=== PATIENT | male | born 1985 | race Caucasian/White ===

== ENCOUNTER 2022-05-23 04:09 | Inpatient (IN) | payer SELFPAY ==
--- NOTE | 2022-05-23 04:20 | ED.C_ITS ---
HPI - Psych General: Chief Complaint: Psychiatric Symptoms Stated Complaint: si/hi Time Seen by Provider: 05/23/22 04:11 Source: patient and police Mode of arrival: other (police) Limitations: no limitations History of Present Illness: 36-year-old male who has a history of drug abuse he does admit to drug use tonight. Please states that on and found him he was hallucinating. He does tell me that he states that multiple he foreshortening tonight he saw bolts going through his head he states that he was also been wearing a bulletproof vest and per police none of this was true. Patient here is under the influence of drugs. He denies suicidal or homicidal ideations but he is acutely psychotic here likely drug-induced. Associated symptoms: Reports visual hallucinations; Deny depression Review of Systems Const: Denies: fever(s), chills, body aches or change in appetite Eyes: Denies: blurry vision or eye discomfort ENMT: Denies: throat pain or dental pain Card: Denies: chest pain Resp: Denies: dyspnea GI: Denies: abdominal pain, nausea, vomiting or diarrhea : Denies: dysuria Musc: Denies: neck pain or back pain Skin/Breast: Denies: rash Neuro: Denies: headache(s) Psych: Reports: mood swings, paranoia and visual hallucinations; Denies: depression Juwan/Lymph: Denies: easy bruising All/Imm: Denies: urticaria [facility] ED PFSH: Medical History (Updated 05/23/22 @ 05:25 by Giancarlo Ibrahim MD) No pertinent past medical history Social History (Updated 05/23/22 @ 04:21 by Giancarlo Ibrahim MD) Substance/Drug Use: current Physical Exam Const: COMMON NORMALS: patient oriented x3 GENERAL APPEARANCE: anxious, disheveled and diaphoretic HENMT: COMMON NORMALS: normocephalic and atraumatic HEAD & SCALP: normocephalic and atraumatic Eye: COMMON NORMALS: Equal, round and reactive pupils present and EOMs intact bilaterally PUPIL: Yes Equal, round and reactive pupils present Neck/C-Spine: COMMON NORMALS: full ROM and supple Chest: COMMONS NORMALS: normal inspection of the chest and normal palpation of entire chest wall Resp: COMMON NORMALS: normal respiratory effort, No retractions, No use of accessory muscles and clear to auscultation bilaterally AUSCULTATION: clear to auscultation bilaterally Cardio: COMMON NORMALS: regular rate, regular rhythm and No murmurs present (Cardio) RATE: regular rate RHYTHM: regular rhythm GI: COMMON NORMALS: Normal to inspection, nondistended, normoactive bowel dorcas nds present, Soft to palpation, non-tender and no masses PALPATION: Yes Soft to palpation Extremity: COMMON NORMALS: normal to inspection and full ROM Neuro: COMMON NORMALS: patient oriented x3, moves all extremities and no focal motor deficits Psych: COMMON NORMALS: mental status grossly normal ATTITUDE: Yes bizarre and Yes aggressive ACTIVITY/MOTOR BEHAVIOR: Yes psychomotor agitation SPEECH: Yes rapid THOUGHT CONTENT: Yes Hallucination(s) present Skin: COMMON NORMALS: no rashes or lesions noted and no wounds GENERAL SKIN EXAM: no rashes or lesions noted Course Vital Signs: Vital signs: Vital Signs Temperature 98.2 F 05/23/22 04:34 Pulse Rate 101 H 05/23/22 05:04 Respiratory Rate 18 05/23/22 05:04 Blood Pressure 113/70 05/23/22 05:04 Pulse Oximetry 97 05/23/22 05:04 Oxygen Delivery Me thod 05/23/22 05:04 MDM - Psych Medical Decision Making Patient presents here with acute psychosis likely drug-induced patient is hallucinating here he is placed on a 96-hour hold he does have a leukocytosis likely due to the methamphetamine he has no signs of infection I talked to psychiatrist will admit the psychiatric unit. Lab Data : 05/23/22 04:35 05/23/22 04:35 Laboratory Results WBC 20.4 10^3/uL (4.0-10.0) H 05/23/22 04:35 RBC 5.11 10^6/uL (4.1-5.3) 05/23/22 04:35 Hgb 16.0 g/dL (11.7-16.6) 05/23/22 04:35 Hct 46.0 % (42.0-52.0) 05/23/22 04:35 MCV 90.0 fl (80-94) 05/23/22 04:35 MCH 31.3 pg (28.0-34.0) 05/23/22 04:35 MCHC 34.8 g/dL (30.0-36.0) 05/23/22 04:35 RDW 11.9 % (12.1-15.1) L 05/23/22 04:35 Plt Count 349 10^3/cmm (130-400) 05/23/22 04:35 MPV 9.8 fL (7.4-10.4) 05/23/22 04:35 Neut % (Auto) 83.6 % 05/23/22 04:35 Lymph % (Auto) 6.4 % 05/23/22 04:35 [place] % (Auto) 9.4 % 05/23/22 04:35 Eos % (Auto) 0.0 % 05/23/22 04:35 Baso % (Auto) 0.2 % 05/23/22 04:35 Neut # (Auto) 17.05 10^3/uL (1.8-7.7) H 05/23/22 04:35 Lymph # (Auto) 1.3 10^3/uL (0.8-4.8) 05/23/22 04:35 [place] # (Auto) 1.9 10^3/uL (0.2-0.9) H 05/23/22 04:35 Eos # (Auto) 0.0 10^3/uL (0.0-0.8) 05/23/22 04:35 Baso # (Auto) 0.0 10^3/uL (0.0-0.1) 05/23/22 04:35 Nucleated RBC % (auto) 0 % 05/23/22 04:35 Nucleated RBCs # 0.0 /100WBC 05/23/22 04:35 Sodium 142 mmol/L (136-145) 05/23/22 04:35 Potassium 4.1 mmol/L (3.5-5.1) 05/23/22 04:35 Chloride 102 mmol/L (98-107) 05/23/22 04:35 Carbon Dioxide 25 mmol/L (22-29) 05/23/22 04:35 Anion Gap 19.1 (5-19) H 05/23/22 04:35 BUN 25 mg/dL (6-20) H 05/23/22 04:35 Creatinine 1.2 mg/dL (0.7-1.2) 05/23/22 04:35 GFR Calculation 68.5 mL/min (90-130) L 05/23/22 04:35 Glucose 107 mg/dL (65-115) 05/23/22 04:35 Calculated Osmolality 299 mOsm/kg (285-295) H 05/23/22 04:35 Calcium 9.4 mg/dL (8.5-10.5) 05/23/22 04:35 Total Bilirubin 0.9 mg/dL (0.15-1.2) 05/23/22 04:35 AST 63 U/L (0-40) H 05/23/22 04:35 ALT 35 U/L (0-41) 05/23/22 04:35 Alkaline Phosphatase 82 IU/L (40-130) 05/23/22 04:35 Total Protein 7.9 g/dL (6.6-8.7) 05/23/22 04:35 Albumin 5.1 g/dL (3.5-5.2) 05/23/22 04:35 Globulin 2.8 g/dL (1.3-4.6) 05/23/22 04:35 Salicylates < 0.3 mg/dL (3-10) L 05/23/22 04:35 Acetaminophen < 5.0 ug/mL (10-30) L 05/23/22 04:35 Ethyl Alcohol < 10 mg/dL (0-10) 05/23/22 04:35 Discharge Plan Discharge Patient Disposition: Admitted As Inpatient Clinical Impression: Acute psychosis, Drug abuse Coding Level of Care Code 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
[2022-05-23] MEDS: midazolam 1 mg/mL INJ 2 mL 4 MG IM (04:22)
[2022-05-23] MEDS: ziprasidone 20 mg/mL SDV IM ×2 (04:22→21:42)
[2022-05-23] MEDS: diphenhydrAMINE 50 mg/mL SDV 1mL IM (04:23)
[2022-05-23 04:34] VITALS: BP 135/109; PULSE 140; RESP 20; TEMP 36.8; O2SAT 100; BMI 22.3
[2022-05-23 04:40] LABS: Basophils % 0.2 %; Lymphocytes # 1.3 10^3/uL (0.8-4.8); Lymphocytes % 6.4 %; Mean Corpuscular HGB Conc 34.8 g/dL (30.0-36.0); Mean Corpuscular Hemoglobin 31.3 pg (28.0-34.0); Mean Platelet Volume 9.8 fL (7.4-10.4); Monocytes # 1.9 10^3/uL (0.2-0.9); Monocytes % 9.4 %; Neutrophils # 17.05 10^3/uL (1.8-7.7); Neutrophils % 83.6 %; Nucleated Red Blood Cells % 0 %; Platelet Count 349 10^3/cmm (130-400); Red Blood Count 5.11 10^6/uL (4.1-5.3); Red Cell Distribution Width 11.9 % (12.1-15.1); White Blood Count 20.4 10^3/uL (4.0-10.0)
--- NOTE | 2022-05-23 04:42 | PC.NURSE ---
Jackson VALERA, was able to talk to patient and deescalate the situation . Pt. has allowed Jackson to give medications and draw blood. Police state that they have went through the patients pockets and made sure that he has nothing on him that will hurt anyone. Pt. is laying in bed after medications have started to work to calm patient.
--- NOTE | 2022-05-23 04:49 | XRR_ITS ---
PROCEDURE INFORMATION: Exam: XR Chest Exam date and time: 05/23/2022 4:53 AM Age: 36 years old Clinical indication: Chest pressure; Patient HX: Chest pain; Additional info: Cp TECHNIQUE: Imaging protocol: Radiologic exam of the chest. Views: 1 view. COMPARISON: No relevant prior studies available. FINDINGS: Lungs: Unremarkable. No consolidation. Pleural spaces: Unremarkable. No pleural effusion. No pneumothorax. Heart/Mediastinum: Unremarkable. No cardiomegaly. Bones/joints: Unremarkable. XR/XR chest 1V portable [id number] IMPRESSION: No acute findings.
[2022-05-23 05:04] VITALS: BP 113/70; PULSE 101; RESP 18; O2SAT 97
[2022-05-23 05:05] LABS: Alanine Aminotransferase 35 U/L (0-41); Albumin Level 5.1 g/dL (3.5-5.2); Alkaline Phosphatase 82 IU/L (40-130); Anion Gap 19.1 (5-19); Aspartate Amino Transferase 63 U/L (0-40); Blood Urea Nitrogen 25 mg/dL (6-20); Calcium 9.4 mg/dL (8.5-10.5); Carbon Dioxide 25 mmol/L (22-29); Chloride 102 mmol/L (98-107); Globulin 2.8 g/dL (1.3-4.6); Glomerular Filtration Rate 68.5 mL/min (90-130); Glucose 107 mg/dL (65-115); Osmolality Calculated 299 mOsm/kg (285-295); Potassium 4.1 mmol/L (3.5-5.1); Sodium 142 mmol/L (136-145); Total Bilirubin 0.9 mg/dL (0.15-1.2); Total Protein 7.9 g/dL (6.6-8.7)
[2022-05-23 05:10] LABS: Acetaminophen < 5.0 ug/mL (10-30); Alcohol Level < 10 mg/dL (0-10); Salicylate < 0.3 mg/dL (3-10)
--- NOTE | 2022-05-23 07:19 | PC.NURSE ---
WHILE AT DOORWAY PT IS RESTLESS MOVING IN BED WITH EYES CLOSED. PT IS IN NAD. PT HAS SITTER AT BEDSIDE. PT IS IN PAPER SCRUBS.
[2022-05-23 08:59] VITALS: BP 94/71; PULSE 97; RESP 20; O2SAT 98
[2022-05-23] MEDS: OLANZapine 5 mg ODT PO (09:11)
--- NOTE | 2022-05-23 09:12 | PC.NURSE ---
Patient reports increased anxiety. Anxious affect and fidgeting observed. Zydis 5 mg sl given for this.
--- NOTE | 2022-05-23 10:30 | W.PM.NPUH&PS ---
Providers/Chief Complaint Admitting Physician: Meir Bolivar MD Chief Complaint: si/hi HPI NPU History of Present Illness Nilton Huerta is a 36 year old male who presented to the Emergency department with the following report: Chief Complaint: Psychiatric Symptoms Stated Complaint: si/hi Time Seen by Provider: 05/23/22 04:11 Source: patient and police Mode of arrival: other (police) Limitations: no limitations History of Present Illness: 36-year-old male who has a history of drug abuse he does admit to drug use tonight. Please states that on and found him he was hallucinating. He does tell me that he states that multiple he foreshortening tonight he saw bolts going through his head he states that he was also been wearing a bulletproof vest and per police none of this was true. Patient here is under the influence of drugs. He denies suicidal or homicidal ideations but he is acutely psychotic here likely drug-induced. Associated symptoms: Reports visual hallucinations; Deny depression He was admitted to the neuropsychiatric unit for definitive treatment of those issues. He presents today reporting he has no allergies, he is not on medications, and that essentially, he had a nervous breakdown. He denies ever having outpatient services or inpatient services but does believe that a PCP wants to try to start him on Celexa maybe for a short period of time. He reports that he smokes about 23 cigarettes a day, has alcohol, marijuana, and also uses other illicit drugs. He reports he has been to a rehab one time, and he has been to two to three rehabs through the criminal justice department jailed rehab so to speak. He never had a DUI, denied any drug related charges. He reports the reason why he is here, is that he had some bizarre experience that in his mind is true and real but that he is being told did not and he feels certain that it did. He reports he did take a cocktail of heroin, methamphetamine, and some other drugs and ended up having a strange situation where he felt people were after him and shooting him and things of that nature. He did acknowledge that there was some slight chance that maybe it was in his mind and had something to do with the drugs. We had a discussion about the impact of methamphetamines, and the chance for psychosis, and the fact that he describes just getting out of [facility] on the and that he has been essentially in the last five years. He reports that it is possible that he guesses that being so removed from using that his body had a more intense reaction with not feeling himself. He reports he did have some moment in his life where he had a little depression, but he reports he is not a depressed person and is not had any trials of medication other than Celexa. He denies ever being at a point where he would want to kill himself, but never had any suicide attempts, never had any self-injurious behavior. The patient is on a 96-hour hold. PSYCHIATRIC HISTORY: As above. SUBSTANCE ABUSE HISTORY: As above. FAMILY HISTORY: There are no mental health or addiction issue on either side of the family and no suicide attempts or completions in the family reported. DEVELOPMENTAL HISTORY: He denies being premature and having any issues at . He learned to walk and talk and met his developmental milestones on time. He reports that when he went off to school, he did not require speech therapy, but he does report that he had learning disability and struggled with math, reading, and writing and was in learning disabled classes. He reports his parents were together when he was born, and he believes they are still together. They have five children, and he was the youngest of the five children, two older brothers, two older sisters, and him. He denies his parents had any other children. He reports his childhood was good. He denied any emotional, physical, or sexual abuse. He denies any CYS involvement or having issues in school where he was truant and there were any placements for that or necessarily for any legal issues. PSYCHOSOCIAL HISTORY: He reports he has been in [facility]f/[facility] for half of his life, reporting that it has been about 18 ? years and he is going to be 37 in a couple of reports. He reports that during that time in alf he has seen a lot of stuff that was not good and sometimes you have to deal with it, sometimes you come with things that you despite, but surviving in [facility] all those years required him to sometimes become like the people that you cannot stand to be able to make it. He reports he graduated from high school and has some certificates in [employer]. He endorses being heterosexual. His longest relationship was five years. He has never been . He has a 9-year-old son and a 17-year-old daughter. He has never been in the . He endorses being Nond[employer]. He reports his longest work history is probably about two years in a [employer]. He reports he currently lives in a trailer with his mom and dad. LEGAL HISTORY: As stated above, he says he has been in [facility] for 18 ? years total of his life and he just finished approximately five-year time straight. There may have been a few days that he got out before returning in those five years, but he spent most of his life in [facility]. MEDICAL HISTORY: There is a question of possible abscess in his inner right elbow. He endorses having hypertension. Meds NPU Home Medications Medication Instructions Recorded Confirmed Last Taken Type No Known Home Medications 05/23/22 05/23/22 Unknown History Allergies Allergy/AdvReac Type Severity Reaction Status Date / Time Penicillins Allergy ALGY-Anaphy Verified 05/23/22 04:18 laxis PFS NPU PFSH: Medical History (Updated 05/25/22 @ 07:54 by Meri Bolivar MD) No pertinent past medical history Social History (Updated 05/23/22 @ 04:21 by Giancarlo Ibrahim MD) Substance/Drug Use: current Mental Status Exam MSE Comments: This is a well-nourished, well-developed, white male, in hospital scrubs, with adequate grooming but limited eye contact. No abnormal movements except for mild psychomotor retardation. Cooperative with exam mild to moderate distress at times. Speech was decreased rate and volume. Mood described as alright; affect congruent. Thought process, organized. Patient does endorse paranoia and he does endorse auditory visual hallucinations. Attention, concentration, and memory appear intact but were not formally tested. He is alert and oriented times three. Insight and judgment impaired, impulse control limited. Vitals/I&O/Wt Last Vital Signs Temp 98.2 F 05/23/22 04:34 Pulse 97 05/23/22 08:59 Resp 20 H 05/23/22 08:59 BP 94/71 05/23/22 08:59 Pulse Ox 98 05/23/22 08:59 O2 Del Method 05/23/22 08:45 Weight last 48 hrs Weight 68.492 kg Data NPU : 05/23/22 04:35 05/23/22 04:35 A&P Assessment and plan (1) Acute psychosis: Status: Acute (2) Drug abuse: Status: Acute (3) No pertinent past medical history: Status: Acute (4) Methamphetamine use disorder, severe: Status: Acute Plan This is a 36, almost 37-year-old, white male, with an extensive legal history, significant drug history, who presents with recent release from [facility] and struggles with coping with some of the challenges related to his addiction and psychosis likely secondary to methamphetamine. RECOMMENDATION AND PLAN: 1. Continue current medication except will continue to encourage him to consider antipsychotic to help with these symptoms, even if they are drug-induced. 2. Encourage individual, group, and milieu therapy. 3. Continue q-15 minute checks for safety. 4. Encourage sober living treatment, after discharge, at the highest level of care to which he is willing to commit. Involuntary Hold Information 96 Hour Hold: 96 Hour Involuntary Admission: Yes 96 Hour Hold Ending Date: 05/29/22 96 Hour Hold Ending Time: 00:01 Attestations NPU Medical Necessity Statement*: Inpatient hospitalization is medically necessary and the clinically appropriate intervention, at this time. We will monitor medications and make changes as indicated. Patient will be in the hospital for over two midnights. Likely length of stay is three to five days. Coding Level of Care Code Acute Warp Hand for Tucker Jiménez Diagnoses Acute psychosis F23 Drug abuse F19.10 No pertinent past medical history Z78.9 Methamphetamine use disorder, severe F15.20
[2022-05-23 13:36] LABS: Amphetamines Screen Urine Positive (Negative); Barbiturates Screen Urine Negative (Negative); Benzodiazepines Screen Urine Negative (Negative); Cocaine Screen Urine Negative (Negative); Opiate Screen Urine Negative (Negative); PCP Screen Urine Negative (Negative); THC Screen Urine Negative (Negative)
[2022-05-23 13:52] VITALS: BP 136/79; PULSE 109; RESP 19; TEMP 36.6; O2SAT 98
[2022-05-23] MEDS: nicotine 21 mg Patch 1 PATCH TRANSDERMA (16:49)
[2022-05-23] MEDS: acetaminophen 325 mg Tablet 650 MG PO (20:17)
[2022-05-23 20:18] VITALS: BP 137/86; PULSE 109; RESP 18; TEMP 37.2; O2SAT 95
[2022-05-23] MEDS: haloperidol 5 mg Tablet PO (21:08)
--- NOTE | 2022-05-23 21:08 | PC.NURSE ---
PT UP PACING THE GRIFFITH. THIS NURSE ASK HOW PT WAS DOING AND PT STATES HE IS SEEING PEOPLE. PT STATES PEOPLE ARE OUT TO GET HIM AND SOMEONE IS COMING TO SHOOT HIM. PT REASSURED HE IS SAFE HERE. PT BELIEVES HE HEARS SOMEONE COMING BUT THIS NURSE ENSURES HIM IT IS OTHER PATIENT DOWN IN THE DAY ROOM WATCHING TV AND PT FELT BETTER. PT STATES THESE PEOPLE HE SEES ARE NOT TALKING TO HIM BUT THERE ARE MORE COMING. HALDOL GIVEN.
[2022-05-23] MEDS: trazodone 50 mg Tablet PO (21:20)
--- NOTE | 2022-05-23 21:43 | PC.NURSE ---
PRN PT CONTINUES TO ESCALATE AFTER PO HALDOL. THIS NURSE WAS GIVEN A TELELPHONE ORDER FOR GEODON 20MG IM NOW BY DR. FELDMAN. PT WAS GIVEN INJECTION AND CONTINUES TO PACE THE GRIFFITH.
--- NOTE | 2022-05-23 21:48 | PC.NURSE ---
WHILE PT CONTINUES TO PACE THE GRIFFITH HE WIPES HIS HEAD OFF FREQUENTLY WITH A WASH CLOTH. PT WAS WALKING BY THE NURSES STATION WASH CLOTH HAS REDNESS TO IT. THIS NURSE WENT TO PT BY HIS ROOM AND LOOKED AT HIS HEAD. PT HAS SMALL SCRATCH ON THE TOP OF HIS HEAD AND PT BELIEVES HE SCRATCHED HIS HEAD WHILE PACING. BANDAID WAS APPLIED.
[2022-05-24 06:56] VITALS: RESP 18
--- NOTE | 2022-05-24 07:49 | P.NPUPN_ITS ---
Subjective NPU Subjective: Patient presents today with no significant changes. He continues to endorse a desire to leave but also clearly still has some psychotic symptoms. He continues to refuse medication to help alleviate the symptoms. We discussed that the new doctor will be here tomorrow for a fresh look at things and that when he was deemed to be safe we would allow him to discharge. Mental Status Exam MSE Comments: This is a well-nourished, well-developed, white male, in hospital scrubs, with adequate grooming but limited eye contact. No abnormal movements except for mild psychomotor retardation. Cooperative with exam mild to moderate distress at times. Speech was decreased rate and volume. Mood described as fine; affect congruent. Thought process, organized. Patient does endorse paranoia and he does endorse auditory visual hallucinations. Attention, concentration, and memory appear intact but were not formally tested. He is alert and oriented times three. Insight and judgment impaired, impulse control limited. Vitals/I&O/Wt Last Vital Signs Temp 99.0 F 05/23/22 20:18 Pulse 109 H 05/23/22 20:18 Resp 18 05/24/22 06:56 BP 137/86 05/23/22 20:18 Pulse Ox 95 05/23/22 20:18 O2 Del Method 05/23/22 08:45 Data NPU : 05/23/22 04:35 05/23/22 04:35 A&P Assessment and plan (1) Acute psychosis: Status: Acute (2) Drug abuse: Status: Acute (3) No pertinent past medical history: Status: Acute (4) Methamphetamine use disorder, severe: Status: Acute Plan This is a 36, almost 37-year-old, white male, with an extensive legal history, significant drug history, who presents with recent release from shelter and struggles with coping with some of the challenges related to his addiction and psychosis likely secondary to methamphetamine. RECOMMENDATION AND PLAN: 1. Continue current medication except will continue to encourage him to cons ider antipsychotic to help with these symptoms, even if they are drug-induced. 2. Encourage individual, group, and milieu therapy. 3. Continue q-15 minute checks for safety. 4. Encourage sober living treatment, after discharge, at the highest level of care to which he is willing to commit. Involuntary Hold Information 96 Hour Hold: 96 Hour Involuntary Admission: Yes 96 Hour Hold Ending Date: 05/29/22 96 Hour Hold Ending Time: 00:01 Attestations NPU Medical Necessity Statement*: Inpatient hospitalization is medically necessary and the clinically appropriate intervention, at this time. We will monitor medications and make changes as indicated. Likely length of stay is 1-3 days. Coding Level of Care Code Acute Orange Picking Supervisor for g Fwd Diagnoses Acute psychosis F23 Drug abuse F19.10 No pertinent past medical history Z78.9 Methamphetamine use disorder, severe F15.20
[2022-05-24 14:00] VITALS: BP 130/86; PULSE 121; RESP 18; TEMP 36.7; O2SAT 96
[2022-05-24 20:04] VITALS: BP 110/68; PULSE 111; RESP 18; TEMP 36.9; O2SAT 97
[2022-05-25 06:00] VITALS: BP 121/75; PULSE 105; RESP 18; TEMP 37; O2SAT 98
--- NOTE | 2022-05-25 11:58 | P.NPUPN_ITS ---
Subjective NPU Subjective: Patient presents today with underwriter mortgage loan for the first time indicating that he has spent half of his life locked in senior living, he reports that after being in senior living for 5 years, he used his illicit drugs including methamphetamine and opiates and reports that he needs to do something different this time. He reports that he is willling to try a different antidepressant and consider placement in rehabilitation. He reports no suicidal thoughts at this time. He reports living with his parents and reports having limited resources to help him currently. He denies any psychotic symptoms at this time. Mental Status Exam MSE Comments: This is a well-nourished, well-developed, white male, in hospital scrubs, with adequate grooming but limited eye contact. No abnormal movements except for mild psychomotor retardation. Cooperative with exam mild to moderate distress at times. Speech was decreased rate and volume. Mood described as stressed; affect: slightly anxious. Thought process, organized. Patient does endorse paranoia and he does endorse auditory visual hallucinations. Attention, concentration, and memory appear intact but were not formally tested. He is alert and oriented times three. Insight and judgment impaired, impulse control limited. Vitals/I&O/Wt Last Vital Signs Temp 98.7 F 05/25/22 19:40 Pulse 100 05/25/22 19:40 Resp 18 05/25/22 19:40 BP 152/100 05/25/22 19:40 Pulse Ox 97 05/25/22 19:40 O2 Del Method 05/25/22 14:00 Data NPU : 05/23/22 04:35 05/23/22 04:35 A&P Assessment and plan (1) Acute psychosis: Status: Acute (2) Methamphetamine use disorder, severe: Status: Acute (3) Depressive disorder: Status: Acute Plan This is a 36, almost 37-year-old, white male, with an extensive legal history, significant drug history, who presents with recent release from senior living and struggles with coping with some of the challenges related to his addiction and psychosis likely secondary to methamphetamine. RECOMMENDATION AND PLAN: 1. Trial of abilify 2mg daily 2. Encourage individual, group, and milieu therapy. 3. Continue q-15 minute checks for safety. 4. Encourage sober living treatment, after discharge, at the highest level of care to which he is willing to commit. 5. Continue to gather collateral information. Involuntary Hold Information 96 Hour Hold: 96 Hour Involuntary Admission: Yes 96 Hour Hold Ending Date: 05/29/22 96 Hour Hold Ending Time: 00:01 Attestations NPU Medical Necessity Statement*: Inpatient hospitalization is medically necessary and the clinically appropriate intervention, at this time. We will monitor medications and make changes as indicated. Likely length of stay is 1-3 days. Coding Level of Care Code Established Pt Acute Cloud Systems Architect for g Fwd Patient Type Established History Problem Focused Exam Problem Focused Medical Decision Making Straight Forward Diagnoses Acute psychosis F23 Methamphetamine use disorder, severe F15.20 Depressive disorder F32.A
[2022-05-25 14:00] VITALS: BP 152/97; PULSE 102; RESP 20; TEMP 36.7; O2SAT 99
[2022-05-25] MEDS: nicotine 2 mg Gum BUCCAL (16:57)
[2022-05-25 19:40] VITALS: BP 152/100; PULSE 100; RESP 18; TEMP 37.1; O2SAT 97
[2022-05-25] MEDS: trazodone 50 mg Tablet PO (23:43)
[2022-05-25] MEDS: hyDROXYzine 25 mg Capsule 50 MG PO (23:43)
[2022-05-26] MEDS: LORazepam 2 mg/mL INJ 1 mL IM (00:46)
[2022-05-26] MEDS: haloperidol inj 5 mg/mL INJ 1 mL IM (00:46)
--- NOTE | 2022-05-26 00:59 | PC.NURSE ---
At 2343, pt was given Trazodone 50mg po and Vistaril 50mg po per his request. Stated he was feeling anxious. and wanted to sleep. With in minutes,this pt as well as 2 other pts were noted coloring in the dayroom. During midnight rounds, said 3 pts were told it's midnight, bedtime . This pt went to room where he shortly was noted standing in his doorway watching the females room across the boone. When this pt noted he was caught watching said room, pt yelled out, stating he was seeing things. RN went to pts side at that time and talked with him. Pt insisted he was seeing people outside the dayroom window. Pt then allowed RN to give Ativan 2mg IM and Haldol 5mg IM.
[2022-05-26 05:57] VITALS: BP 105/52; PULSE 87; RESP 16; TEMP 36.6; O2SAT 99
[2022-05-26] MEDS: ARIPiprazole 2 mg Tablet PO (10:09)
--- NOTE | 2022-05-26 12:29 | P.NPUPN_ITS ---
Subjective NPU Subjective: Patient 36y.o. wm admitted with methamphetamine use and psychotic symptoms Patient seen today in room. He reports that he is continuing to feel paranoid and reports that he continues to have haunted thoughts. He continues to isolate self and reports having difficulties with seeing the difference between reality and his own thoughts. Patient reports some difficulties with sleep continuity disruption. No withdrawal symptoms reported. Mental Status Exam MSE Comments: This is a well-nourished, well-developed, white male, in hospital scrubs, lying in bed with adequate grooming but limited eye contact. No abnormal movements except for mild psychomotor retardation. Cooperative with exam mild to moderate distress at times. Speech was decreased rate and decrease volume. Mood described not so good ; affect: anxious and mood congruent. Thought process, organized but superficial. Patient continued to report paranoia and he did endorse auditory visual hallucinations while appearing Attention, concentration, and memory appear intact but were not formally tested. He is alert and oriented times three. Insight and judgment impaired, impulse control limited. Vitals/I&O/Wt Last Vital Signs Temp 97.8 F 05/26/22 14:00 Pulse 92 05/26/22 14:00 Resp 16 05/26/22 14:00 BP 98/60 05/26/22 14:00 Pulse Ox 98 05/26/22 14:00 O2 Del Method 05/26/22 14:00 Data NPU : 05/23/22 04:35 05/23/22 04:35 A&P Assessment and plan (1) Acute psychosis: Status: Acute (2) Methamphetamine use disorder, severe: Status: Acute (3) Depressive disorder: Status: Acute Plan This is a 36, almost 37-year-old, white male, with an extensive legal history, significant drug history, who presents with recent release from long term and struggles with coping with some of the challenges related to his addiction and psychosis likely secondary to methamphetamine. RECOMMENDATION AND PLAN: 1. Increase abilify 5mg daily 2. Encourage individual, group, and milieu therapy. 3. Continue q-15 minute checks for safety. 4. Encourage sober living treatment, after discharge, at the highest level of care to which he is willing to commit. 5. Continue to gather collateral information. Involuntary Hold Information 96 Hour Hold: 96 Hour Involuntary Admission: Yes 96 Hour Hold Ending Date: 05/29/22 96 Hour Hold Ending Time: 00:01 Attestations NPU Medical Necessity Statement*: Inpatient hospitalization is medically necessary and the clinically appropriate intervention, at this time. We will monitor medications and make changes as indicated. Likely length of stay is 2-4 days. 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
[2022-05-26 14:00] VITALS: BP 98/60; PULSE 92; RESP 16; TEMP 36.6; O2SAT 98
[2022-05-26 19:49] VITALS: PULSE 81; RESP 22; TEMP 36.6; O2SAT 98
[2022-05-26] MEDS: OLANZapine 5 mg ODT PO (21:07)
[2022-05-26] MEDS: hyDROXYzine 25 mg Capsule 50 MG PO (21:07)
[2022-05-27 06:00] VITALS: BP 121/80; PULSE 107; RESP 18; TEMP 36.5; O2SAT 99
[2022-05-27] MEDS: ARIPiprazole 10 mg Tablet 5 MG PO (08:32)
[2022-05-27 14:00] VITALS: BP 120/75; PULSE 76; RESP 14; TEMP 36.8; O2SAT 99
--- NOTE | 2022-05-27 14:34 | W.PM.NPUPNS ---
Subjective NPU Subjective: Patient 36y.o. wm admitted with methamphetamine use and psychotic symptoms. Patient seen today in room again lying down. He continues to isolate on unit. He reports feeling a bit better but continues to be distracted by internal stimuli per staff. Patient reports no side effects from abilify. He reports that the voices continue to bother him but minimizes suicidal thoughts at this time. NO cravings or withdrawals for substances reported. Mental Status Exam MSE Comments: This is a well-nourished, well-developed, white male, in hospital scrubs, lying in bed with adequate grooming but limited eye contact. No abnormal movements except for mild psychomotor retardation. Cooperative with exam mild to moderate distress at times. Speech was decreased rate and decrease volume. Mood described not so good ; affect: anxious and mood congruent. Thought process, organized but superficial. Patient continued to report paranoia and he did endorse auditory visual hallucinations while appearing Attention, concentration, and memory appear intact but were not formally tested. He is alert and oriented times three. Insight and judgment impaired, impulse control limited. Vitals/I&O/Wt Last Vital Signs Temp 98.1 F 05/27/22 18:37 Pulse 93 05/27/22 18:37 Resp 15 05/27/22 18:37 BP 116/73 05/27/22 18:37 Pulse Ox 98 05/27/22 18:37 O2 Del Method 05/27/22 06:00 Data NPU : 05/23/22 04:35 05/23/22 04:35 A&P Assessment and plan (1) Acute psychosis: Status: Acute (2) Methamphetamine use disorder, severe: Status: Acute (3) Depressive disorder: Status: Acute Plan This is a 36, almost 37-year-old, white male, with an extensive legal history, significant drug history, who presents with recent release from nursing home and struggles with coping with some of the challenges related to his addiction and psychosis likely secondary to methamphetamine. RECOMMENDATION AND PLAN: 1. Increase abilify 10mg daily with likely discharge tommorow if improvement continues. 2. Encourage individual, group, and milieu therapy. 3. Continue q-15 minute checks for safety. 4. Encourage sober living treatment, after discharge, at the highest level of care to which he is willing to commit. 5. Continue to gather collateral information. Involuntary Hold Information 96 Hour Hold: 96 Hour Involuntary Admission: Yes 96 Hour Hold Ending Date: 05/29/22 96 Hour Hold Ending Time: 00:01 Attestations NPU Medical Necessity Statement*: Inpatient hospitalization is medically necessary and the clinically appropriate intervention, at this time. We will monitor medications and make changes as indicated. Likely length of stay is 1-2 days. 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
[2022-05-27] MEDS: nicotine 2 mg Gum BUCCAL (15:38)
[2022-05-27] MEDS: OLANZapine 5 mg ODT PO (15:38)
[2022-05-27 18:37] VITALS: BP 116/73; PULSE 93; RESP 15; TEMP 36.7; O2SAT 98
[2022-05-27] MEDS: acetaminophen 325 mg Tablet 650 MG PO (19:48)
[2022-05-28 06:00] VITALS: BP 130/86; PULSE 79; RESP 16; TEMP 36.6; O2SAT 99
[2022-05-28] MEDS: ARIPiprazole 10 mg Tablet PO (09:12)
[2022-05-28 11:22] VITALS: BP 130/86; PULSE 79; RESP 16; TEMP 36.6; O2SAT 99
--- NOTE | 2022-05-28 13:13 | P.NPUDS_ITS ---
Diagnoses at Discharge Discharge Diagnosis (1) Acute psychosis: Status: Resolved (2) Methamphetamine use disorder, severe: Status: Resolved (3) Depressive disorder: Status: Resolved Reason for Visit Reason for Visit: si/hi Brief History: Nilton Huerta is a 36 year old male who presented to the Emergency department with the following report: Chief Complaint: Psychiatric Symptoms Stated Complaint: si/hi Time Seen by Provider: 05/23/22 04:11 Source: patient and police Mode of arrival: other (police) Limitations: no limitations History of Present Illness:?? 36-year-old male who has a history of drug abuse he does admit to drug use tonight.? Please states that on and found him he was hallucinating.? He does tell me that he states that multiple he foreshortening tonight he saw bolts going through his head he states that he was also been wearing a bulletproof vest and per police none of this was true.? Patient here is under the influence of drugs.? He denies suicidal or homicidal ideations but he is acutely psychotic here likely drug-induced. Associated symptoms: Reports visual hallucinations; Deny depression He was admitted to the neuropsychiatric unit for definitive treatment of those issues. He presents today reporting he has no allergies, he is not on medications, and that essentially, he had a nervous breakdown. He denies ever having outpatient services or inpatient services but does believe that a PCP wants to try to start him on Celexa maybe for a short period of time. He reports that he smokes about 23 cigarettes a day, has alcohol, marijuana, and also uses other illicit drugs. He reports he has been to a rehab one time, and he has been to two to three rehabs through the criminal justice department jailed rehab so to speak. He never had a DUI, denied any drug related charges. He reports the reason why he is here, is that he had some bizarre experience that in his mind is true and real but that he is being told did not and he feels certain that it did. He reports he did take a cocktail of heroin, methamphetamine, and some other drugs and ended up having a strange situation where he felt people were after him and shooting him and things of that nature. He did acknowledge that there was some slight chance that maybe it was in his mind and had something to do with the drugs. We had a discussion about the impact of methamphetamines, and the chance for psychosis, and the fact that he describes just getting out of [facility]dc on the and that he has been essentially in the last five years. He reports that it is possible that he guesses that being so removed from using that his body had a more intense reaction with not feeling himself. He reports he did have some moment in his life where he had a little depression, but he reports he is not a depressed person and is not had any trials of medication other than Celexa. He denies ever being at a point where he would want to kill himself, but never had any suicide attempts, never had any self-injurious behavior. The patient is on a 96-hour hold. PSYCHIATRIC HISTORY: As above. SUBSTANCE ABUSE HISTORY: As above. FAMILY HISTORY: There are no mental health or addiction issue on either side of the family and no suicide attempts or completions in the family reported. DEVELOPMENTAL HISTORY: He denies being premature and having any issues at . He learned to walk and talk and met his developmental milestones on time. He reports that when he went off to school, he did not require speech therapy, but he does report that he had learning disability and struggled with math, reading, and writing and was in learning disabled classes. He reports his parents were together when he was born, and he believes they are still together. They have five children, and he was the youngest of the five children, two older brothers, two older sisters, and him. He denies his parents had any other children. He reports his childhood was good. He denied any emotional, physical, or sexual abuse. He denies any [employer] involvement or having issues in school where he was truant and there were any p lacements for that or necessarily for any legal issues. PSYCHOSOCIAL HISTORY: He reports he has been in nursing home/[facility]c for half of his life, reporting that it has been about 18 ? years and he is going to be 37 in a couple of reports. He reports that during that time in nursing home he has seen a lot of stuff that was not good and sometimes you have to deal with it, sometimes you come with things that you despite, but surviving in [facility]dc all those years required him to sometimes become like the people that you cannot stand to be able to make it. 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 He endorses being heterosexual. His longest relationship was five years. He has never been . He has a 9-year-old son and a 17-year-old daughter. He has never been in the . He endorses being Mu-Ism/Christianity. He reports his longest work history is probably about two years in a [employer]. He reports he currently lives in a trailer with his mom and dad. LEGAL HISTORY: As stated above, he says he has been in [facility]dc for 18 ? years total of his life and he just finished approximately five-year time straight. There may have been a few days that he got out before returning in those five years, but he spent most of his life in fdc. MEDICAL HISTORY: There is a question of possible abscess in his inner right elbow. He endorses having hypertension. Hospital Course Hospital Course During the hospitalization, patient had routine laboratory studies which were within normal limits except for few outliers.? Additionally there was a general medical evaluation which was also within normal limits and revealed no new acute processes. Discharge Summary: At the time of discharge, lethality was denied and psychosis was resolving.? Mood and anxiety were well managed.? Patient endorsed a plan to avoid all drugs of abuse and follow-up with the aftercare recommendations of the treatment team.? Patient was evaluated and deemed to be absent credible lethality, and had achieved the maximum benefit from an inpatient hospitalization, so was discharged. Involuntary Hold Information 96 Hour Hold: 96 Hour Involuntary Admission: Yes 96 Hour Hold Ending Date: 05/29/22 96 Hour Hold Ending Time: 00:01 Mental Status Exam MSE Comments: This is a well-nourished, well-developed, white male, in hospital scrubs, lying in bed with adequate grooming but limited eye contact. No abnormal movements except for mild psychomotor retardation. Cooperative with exam in no acute distress. Speech was normal rate and volume. Mood described better ; affect: euthymic Thought process, organized but superficial. Patient continued to report paranoia and he denied auditory or visual hallucinations. Attention, concentration, and memory appear intact but were not formally tested. He is alert and oriented times three. Insight and judgment impaired, impulse control limited. Discharge Data Studies Completed and Pending: Completed Studies During Hospitalization Category Date Time Status CXRP [XR chest 1V portable [id number]] S tat Exams 05/23/22 04:49 Completed Radiology Impressions Chest X-Ray 05/23/22 04:49 IMPRESSION: No acute findings. Laboratory Results WBC 20.4 10^3/uL (4.0 -10.0) H 05/23/22 04:35 RBC 5.11 10^6/uL (4.1 -5.3) 05/23/22 04:35 Hgb 16.0 g/dL (11.7-1 6.6) 05/23/22 04:35 Hct 46.0 % (42.0-52.0 ) 05/23/22 04:35 MCV 90.0 fl (80-94) 05/23/22 04:35 MCH 31.3 pg (28.0-34. 0) 05/23/22 04:35 MCHC 34.8 g/dL (30.0-3 6.0) 05/23/22 04:35 RDW 11.9 % (12.1-15.1 ) L 05/23/22 04:35 Plt Count 349 10^3/cmm (130 -400) 05/23/22 04:35 MPV 9.8 fL (7.4-10.4) 05/23/22 04:35 Neut % (Auto) 83.6 % 05/23/22 04:35 Lymph % (Auto) 6.4 % 05/23/22 04:35 [place] % (Auto) 9.4 % 05/23/22 04:35 Eos % (Auto) 0.0 % 05/23/22 04:35 Baso % (Auto) 0.2 % 05/23/22 04:35 Neut # (Auto) 17.05 10^3/uL (1. 8-7.7) H 05/23/22 04:35 Lymph # (Auto) 1.3 10^3/uL (0.8- 4.8) 05/23/22 04:35 [place] # (Auto) 1.9 10^3/uL (0.2- 0.9) H 05/23/22 04:35 Eos # (Auto) 0.0 10^3/uL (0.0- 0.8) 05/23/22 04:35 Baso # (Auto) 0.0 10^3/uL (0.0- 0.1) 05/23/22 04:35 Nucleated RBC % (a uto) 0 % 05/23/22 04:35 Nucleated RBCs # 0.0 /100WBC 05/23/22 04:35 Sodium 142 mmol/L (136-1 45) 05/23/22 04:35 Potassium 4.1 mmol/L (3.5-5 .1) 05/23/22 04:35 Chloride 102 mmol/L (98-10 7) 05/23/22 04:35 Carbon Dioxide 25 mmol/L (22-29) 05/23/22 04:35 Anion Gap 19.1 (5-19) H 05/23/22 04:35 BUN 25 mg/dL (6-20) H 05/23/22 04:35 Creatinine 1.2 mg/dL (0.7-1. 2) 05/23/22 04:35 GFR Calculation 68.5 mL/min (90-1 30) L 05/23/22 04:35 Glucose 107 mg/dL (65-115 ) 05/23/22 04:35 Calculated Osmolal ity 299 mOsm/kg (285- 295) H 05/23/22 04:35 Calcium 9.4 mg/dL (8.5-10 .5) 05/23/22 04:35 Total Bilirubin 0.9 mg/dL (0.15-1 .2) 05/23/22 04:35 AST 63 U/L (0-40) H 05/23/22 04:35 ALT 35 U/L (0-41) 05/23/22 04:35 Alkaline Phosphata se 82 IU/L (40-130) 05/23/22 04:35 Total Protein 7.9 g/dL (6.6-8.7 ) 05/23/22 04:35 Albumin 5.1 g/dL (3.5-5.2 ) 05/23/22 04:35 Globulin 2.8 g/dL (1.3-4.6 ) 05/23/22 04:35 Salicylates < 0.3 mg/dL (3-10 ) L 05/23/22 04:35 Urine Opiates Scre en Negative ng/mL (N egative) 05/23/22 12:51 Acetaminophen < 5.0 ug/mL (10-3 0) L 05/23/22 04:35 Ur Barbiturates Sc reen Negative ng/mL (N egative) 05/23/22 12:51 Ur Phencyclidine S crn Negative ng/mL (N egative) 05/23/22 12:51 Ur Amphetamines Sc reen Positive ng/mL (N egative) H 05/23/22 12:51 U Benzodiazepines Scrn Negative ng/mL (N egative) 05/23/22 12:51 Urine Cocaine Scre en Negative ng/mL (N egative) 05/23/22 12:51 U Marijuana (THC) Screen Negative ng/mL (N egative) 05/23/22 12:51 Ethyl Alcohol < 10 mg/dL (0-10) 05/23/22 04:35 Vitals: Last Vital Signs Temp 98 F 05/28/22 11:22 Pulse 79 05/28/22 11:22 Resp 16 05/28/22 11:22 BP 130/86 05/28/22 11:22 Pulse Ox 99 05/28/22 11:22 O2 Del Method 05/28/22 06:00 Discharge Plan Discharge Patient Disposition: Home Condition: Stable Prescriptions: New aripiprazole 10 mg Tablet 10 mg PO DAILY 30 Days Qty: 30 1RF Abilify 10 mg tablet 10 mg PO DAILY Qty: 30 1RF Discharge Orders: Discharge Order (Routine); Ordered 05/28/22 Ordered By: Ronn Payne Referrals: [facility] [Other] - 06/02/22 10:45 am (Initial assesswment) Brian Garza Jr, MD [Staff Physician] - Discharge Diet: Advance as tolerated Discharge Activity: Resume usual activity Patient Instructions: Mood Disorders (GEN), Opioid Safety Discharge Attestations NPU Time Spent in Discharge Care*: less than 30 min Specific Discharge Activities: Specific discharge activities: educating patient and documenting/other paperwork Coding Level of Care Code Established Pt Acute Chg FW DC note Patient Type Established History Problem Focused Exam Problem Focused Medical Decision Making Straight Forward Diagnoses Acute psychosis F23 Methamphetamine use disorder, severe F15.20 Depressive disorder F32.A
[2022-05-28 13:46] VITALS: BP 141/96; PULSE 83; RESP 18; TEMP 36.6; O2SAT 98
== END 2022-05-28 14:08 | disposition home or self-care (01) | DRG 897 ==
LOC: ER 05:25 → NP 06:45
PROVIDERS: Admitting Provider Psychiatry & Neurology Psychiatry; Emergency Provider Emergency Medicine; Visit Provider Psychiatry & Neurology Psychiatry
DX: F15.259 Other stimulant dependence with stimulant-induced psychotic disorder, unspecified (principal); F15.20 Other stimulant dependence, uncomplicated; F17.210 Nicotine dependence, cigarettes, uncomplicated; I10 Essential (primary) hypertension; F32.A Depression, unspecified
CPT/HCPCS: 71045; 80053; 80306; 80307; 85025; 96372; 97150; 97165; 99285; J1200; J1630; J2060; J2250; J3486